=== PATIENT | male | born 1945 | race Caucasian/White ===

== ENCOUNTER 2016-12-05 14:15 | Emergency (ER) | payer MEDICAID ==
[~2016-12-05] VITALS: Ht 172.7 cm; Wt 90.7 kg
[~2016-12-05 14:15] MED LIST: DUTA0.5C PO; HYDR-3326 PO; NEBI5TAB8 PO; TAMS-12 PO; TRAM50TA2 PO; ZOLP5TAB2 PO
[2016-12-05] MEDS ORDERED: ONDANSETRON HCL/PF 4 MG/2 ML VIAL IVP ONE (14:30)
[2016-12-05] MEDS ORDERED: MORPHINE SULFATE INJ 2 MG/ML DISP.SYRIN IV ONE (14:30)
[2016-12-05] MEDS ORDERED: ASPIRIN 81 MG TAB.CHEW PO ONE (14:30)
[2016-12-05] MEDS ORDERED: ASPIRIN 81 MG TAB.CHEW ONE (14:40)
[2016-12-05] MEDS ORDERED: MORPHINE SULFATE INJ 2 MG/ML DISP.SYRIN ONE (14:40)
[2016-12-05] MEDS ORDERED: ONDANSETRON HCL/PF 4 MG/2 ML VIAL ONE (14:40)
[2016-12-05 14:42] LABS: HEMOGLOBIN 16.4 g/dL (13.5-17.5); LYMPHOCYTES # (AUTO) 2.2 /CMM (0.8-4.8)
[2016-12-05 14:46] LABS: BASOPHILS # (AUTO) 0.1 /CMM (0.0-0.2); BASOPHILS % (AUTO) 0.7 % (0.0-2.0); DIFF TOTAL % 100 %; EOSINOPHILS # (AUTO) 0.2 /CMM (0.0-0.7); HEMATOCRIT 48 % (39-51); LYMPHOCYTES % (AUTO) 28.5 % (20.0-44.0); MEAN CORPUSCULAR HEMOGLOBIN 30 PG (26.0-33.0); MEAN CORPUSCULAR HGB CONC 34 g/dl (31.0-36.0); MEAN CORPUSCULAR VOLUME 89 fL (80-96); MONOCYTES # (AUTO) 0.4 /CMM (0.1-1.30); MONOCYTES % (AUTO) 5.5 % (2.0-12.0); NEUTROPHILS % (AUTO) 63.3 % (43.0-81.0); PLATELET COUNT (AUTO) 190 /CMM (150-450); WHITE BLOOD COUNT (AUTO) 7.9 K/uL (4.3-11.0)
[2016-12-05 14:53] LABS: ANION GAP 11 (5-14); CALCIUM, SERUM 8.6 mg/dL (8.5-10.1); CARBON DIOXIDE 28 mmol/L (21-32); CHLORIDE 108 mmol/L (98-107); GLUCOSE 129 mg/dL (74-106); SODIUM SERUM 143 mmol/L (136-145); UREA NITROGEN, BLOOD 19 mg/dL (7-18)
[2016-12-05 14:56] LABS: INR 0.97 (0.87-1.13); PROTHROMBIN TIME 10.2 SECS (9.5-12.7)
[2016-12-05 15:01] LABS: TROPONIN I < 0.017 ng/mL (0.00-0.056)
[2016-12-05 16:53] VITALS: BP 145/83
== END 2016-12-05 16:54 | disposition left against medical advice (07) ==
LOC: ER 14:17
DX: R07.89 Other chest pain (principal); R61 Generalized hyperhidrosis; I10 Essential (primary) hypertension
CPT/HCPCS: 36415; 71010; 80048; 84484; 85025; 85730; 87081; 93005; 96374; 96375; 99285; A4606; J2270; J2405; Z7610

== ENCOUNTER 2017-05-15 14:28 | Emergency (ER) | payer MEDICAID ==
[~2017-05-15] VITALS: Ht 180.3 cm; Wt 70.3 kg
[2017-05-15 14:36] VITALS: BP 139/88
--- NOTE | 2017-05-15 14:36 | NUR ---
HEADACHE X 2 DAYS, WORSENING TODAY AWAITING MD ORDER
--- NOTE | 2017-05-15 15:01 | NUR ---
PT ANDREA ALCARAZ MADE AWARE
== END 2017-05-15 15:05 | disposition left against medical advice (07) ==
LOC: ER 14:29
DX: Z53.21 Procedure and treatment not carried out due to patient leaving prior to being seen by health care provider (principal)
CPT/HCPCS: A4606; Z7610

== ENCOUNTER 2017-12-16 09:22 | Emergency (ER) | payer MEDICAID ==
[~2017-12-16] VITALS: Ht 172.7 cm; Wt 79.4 kg
[~2017-12-16 09:22] MED LIST changes: -HYDR-3326 PO; +HYDR-3974 PO
[2017-12-16 09:26] VITALS: BP 129/79
== END 2017-12-16 10:07 | disposition home or self-care (01) ==
LOC: ER 09:24
DX: H66.91 Otitis media, unspecified, right ear (principal); H60.91 Unspecified otitis externa, right ear; I10 Essential (primary) hypertension; N40.0 Benign prostatic hyperplasia without lower urinary tract symptoms; G43.909 Migraine, unspecified, not intractable, without status migrainosus; Z85.038 Personal history of other malignant neoplasm of large intestine
CPT/HCPCS: A4606; Z7610

== ENCOUNTER 2019-03-29 20:19 | Emergency (ER) | payer MEDICAID ==
[~2019-03-29] VITALS: Ht 165.1 cm; Wt 86.2 kg
--- NOTE | 2019-03-29 20:40 | NUR ---
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 PT AAOX4 NO ACUTE DISTRESS NOTED, RESP EVEN AND UNLABORED. PUPILS PERRLA, PT ABLE TO MOVE ALL EXTREMITIES WELL WITH BILATERAL EQUAL SENIOR WRITER. PLACE PT ON CARDIAC MONITORING, CONTINUOUS POX. PENDING ER MD DELACRUZ.
--- NOTE | 2019-03-29 20:56 | NUR ---
PT TRANSPORTED TO [facility] FOR CT HEAD.
--- NOTE | 2019-03-29 21:19 | NUR ---
PT BACK FROM RADIOLOGY. PENDING CT RESULT.
--- NOTE | 2019-03-29 21:23 | NUR ---
CHAPARRITA SALAZAR AT BEDSIDE TO RE-EVAL PT.
[2019-03-29] MEDS ORDERED: ACETAMINOPHEN ES 500 MG TABLET PO ONE (21:30)
[2019-03-29] MEDS ORDERED: MECLIZINE HCL 12.5 MG TABLET PO ONE (21:30)
[2019-03-29] MEDS ORDERED: ACETAMINOPHEN ES 500 MG TABLET ONE (21:33)
[2019-03-29] MEDS ORDERED: MECLIZINE HCL 12.5 MG TABLET ONE (21:33)
--- NOTE | 2019-03-29 22:25 | NUR ---
Patient discharged to home in stable condition. Written and verbal after care instructions given. Patient verbalizes understanding of instruction. ambulatory with a steady gait noted. pt aaox4 no acute distress noted, resp even and unlabored. pt verbalize relief of dizziness. pt family members at bedside to take pt home.
[2019-03-29 22:26] VITALS: BP 143/76
== END 2019-03-29 22:36 | disposition home or self-care (01) ==
LOC: ER 20:19
DX: G43.909 Migraine, unspecified, not intractable, without status migrainosus (principal); R42 Dizziness and giddiness; I10 Essential (primary) hypertension; N40.0 Benign prostatic hyperplasia without lower urinary tract symptoms; G47.00 Insomnia, unspecified; Z98.890 Other specified postprocedural states; Z85.038 Personal history of other malignant neoplasm of large intestine
CPT/HCPCS: 70450; 99284; J8597

== ENCOUNTER 2019-08-12 08:41 | Emergency (ER) | payer MEDICAID ==
[~2019-08-12] VITALS: Ht 170.2 cm; Wt 86.2 kg
--- NOTE | 2019-08-12 08:55 | NUR ---
PATIENT C/O NECK PAIN, TEACHER COUNSELOR AT BEDSIDE. MD AT BEDSIDE FOR EVAL. PATIENT A/OX4, BREATHING EVEN AND UNLABORED, VITALS STABLE. NEEDS ATTENDED.
[2019-08-12] MEDS ORDERED: IBUPROFEN 600 MG TABLET PO ONE ×2 (09:00→09:05)
--- NOTE | 2019-08-12 09:45 | NUR ---
PATIENTS FAMILY AT BEDSIDE.
[2019-08-12] MEDS ORDERED: ONDANSETRON HCL/PF 4 MG/2 ML VIAL ONE (09:57)
[2019-08-12] MEDS ORDERED: HYDROMORPHONE 1 MG/1 ML DISP.SYRIN ONE (09:57)
[2019-08-12] MEDS ORDERED: HYDROMORPHONE 1 MG/1 ML DISP.SYRIN IV ONE (10:00)
[2019-08-12] MEDS ORDERED: ONDANSETRON HCL/PF - ER 4 MG/2 ML VIAL IV ONE (10:00)
--- NOTE | 2019-08-12 10:26 | NUR ---
Patient A/OX4, no distress noted, per patient, "feels better". Ambulatory with a steady gait. IV removed. Catheter intact and site benign. Pressure and 4x4 applied to site. No bleeding noted.Patient discharged to home in stable condition. Written and verbal after care instructions given to patient and daughter. Patient verbalizes understanding of instruction. Patient instructed not to drive.
[2019-08-12 10:27] VITALS: BP 146/92
== END 2019-08-12 10:28 | disposition home or self-care (01) ==
LOC: ER 08:43
DX: M54.2 Cervicalgia (principal); I10 Essential (primary) hypertension; N40.0 Benign prostatic hyperplasia without lower urinary tract symptoms; G47.00 Insomnia, unspecified; G43.909 Migraine, unspecified, not intractable, without status migrainosus; Z85.038 Personal history of other malignant neoplasm of large intestine; Z98.890 Other specified postprocedural states
CPT/HCPCS: 96374; 96375; 99283; J1170; J2405 ×2

== ENCOUNTER 2019-08-13 01:09 | Emergency (ER) | payer MEDICAID ==
[~2019-08-13] VITALS: Ht 165.1 cm; Wt 88.5 kg
[2019-08-13] MEDS ORDERED: HYDROMORPHONE 1 MG/1 ML DISP.SYRIN ONE (01:54)
[2019-08-13 02:00] VITALS: BP 140/78
[2019-08-13] MEDS ORDERED: HYDROMORPHONE INJ 0.5 MG/0.5 ML SYRINGE IM ONE (02:00)
--- NOTE | 2019-08-13 02:01 | NUR ---
C/O NECK PAIN STARTED YESTERDAY., CAME INTO ER 08/12/19 IN THE AM AND GOT PRESCRIPTION NORCO BUT "DID NOT WORK" VSS, TAKEN TO CT
--- NOTE | 2019-08-13 05:09 | NUR ---
Patient discharged to home in stable condition. Written and verbal after care instructions given. Patient verbalizes understanding of instruction.
== END 2019-08-13 05:10 | disposition home or self-care (01) ==
LOC: ER 01:10
DX: M62.838 Other muscle spasm (principal); I10 Essential (primary) hypertension; N40.0 Benign prostatic hyperplasia without lower urinary tract symptoms; G47.00 Insomnia, unspecified; G43.909 Migraine, unspecified, not intractable, without status migrainosus; Z98.890 Other specified postprocedural states; Z85.038 Personal history of other malignant neoplasm of large intestine; Z79.899 Other long term (current) drug therapy
CPT/HCPCS: 72125; 96372; 99284; J1170

== ENCOUNTER 2019-12-16 08:16 | Emergency (ER) | payer MEDICAID ==
[~2019-12-16] VITALS: Ht 175.3 cm; Wt 74.8 kg
--- NOTE | 2019-12-16 08:30 | NUR ---
R SIDED CHEST PAIN, RADIATING THROUGH TO THE BACK X 4 DAYS. PATIENT A/OX4, BREATHING EVEN AND UNLABORED, NO SOB NOTED, ATTACHED TO THE BREAD PACKER. VSS.
[2019-12-16] MEDS ORDERED: KETOROLAC TROMETHAMINE 15 MG/ML VIAL ONE (08:51)
[2019-12-16 08:52] LABS: BASOPHILS # (AUTO) 0.1 /CMM (0.0-0.2); BASOPHILS % (AUTO) 0.7 % (0.0-2.0); EOSINOPHILS % (AUTO) 2.3 % (0.0-6.0); HEMATOCRIT 49 % (39-51); HEMOGLOBIN 16.6 g/dL (13.5-17.5); LYMPHOCYTES # (AUTO) 2.8 /CMM (0.8-4.8); LYMPHOCYTES % (AUTO) 32.7 % (20.0-44.0); MEAN CORPUSCULAR HGB CONC 34 g/dl (31.0-36.0); MEAN CORPUSCULAR VOLUME 92 fL (80-96); MONOCYTES # (AUTO) 0.7 /CMM (0.1-1.30); MONOCYTES % (AUTO) 8.4 % (2.0-12.0); NEUTROPHILS # (AUTO) 4.8 /CMM (1.8-8.9); NEUTROPHILS % (AUTO) 55.9 % (43.0-81.0); PLATELET COUNT (AUTO) 111 /CMM (150-450); WHITE BLOOD COUNT (AUTO) 8.6 K/uL (4.3-11.0)
[2019-12-16] MEDS ORDERED: KETOROLAC TROMETHAMINE INJ 30 MG/ML VIAL IV ONE (09:00)
[2019-12-16 09:02] LABS: CALCIUM, SERUM 8.3 mg/dL (8.5-10.1); CARBON DIOXIDE 28 mmol/L (21-32); CHLORIDE 108 mmol/L (98-107); CREATININE 0.9 mg/dL (0.6-1.3); GLUCOSE 105 mg/dL (74-106); POTASSIUM 4.3 mmol/L (3.5-5.1); SODIUM SERUM 142 mmol/L (136-145); UREA NITROGEN, BLOOD 12 mg/dL (7-18)
[2019-12-16 09:22] LABS: ALANINE AMINOTRANSFERASE 23 U/L (12-78); ALBUMIN 3.2 g/dL (3.4-5.0); ALKALINE PHOSPHATASE 70 U/L (46-116); ASPARTATE AMINOTRANSFERASE 33 U/L (15-37); B-TYPE NATRIURETIC PEPTIDE 86 PG/ML (0-125); BILIRUBIN,TOTAL 0.6 mg/dL (0.2-1.0); TOTAL PROTEIN, SERUM 6.8 g/dL (6.4-8.2)
--- NOTE | 2019-12-16 09:47 | NUR ---
PATIENT AMBULATORY, DENIES PAIN AT THIS TIME. IV removed. Catheter intact and site benign. Pressure and 4x4 applied to site. No bleeding noted.Patient discharged to home in stable condition. Written and verbal after care instructions given. Patient verbalizes understanding of instruction.
[2019-12-16 09:48] VITALS: BP 131/76
== END 2019-12-16 09:49 | disposition home or self-care (01) ==
LOC: ER 08:18
DX: R07.89 Other chest pain (principal); I10 Essential (primary) hypertension; N40.0 Benign prostatic hyperplasia without lower urinary tract symptoms; G47.00 Insomnia, unspecified; G43.909 Migraine, unspecified, not intractable, without status migrainosus; Z98.890 Other specified postprocedural states; Z79.899 Other long term (current) drug therapy
CPT/HCPCS: 36415; 71045; 80048; 80076; 83880; 84484; 85025; 85730; 87081; 93005 ×3; 96374; 99285; J1885

== ENCOUNTER 2020-05-27 11:15 | Emergency (ER) | payer MEDICAID ==
[~2020-05-27] VITALS: Ht 175.3 cm; Wt 71.7 kg
--- NOTE | 2020-05-27 11:26 | NUR ---
URINE SPECIMEN COLLECTED AND SENT TO LAB.
--- NOTE | 2020-05-27 11:30 | NUR ---
AT BEDSIDE FOR EVAL.
[2020-05-27 11:41] LABS: APPEARANCE,URINE Clear (CLEAR); BILIRUBIN,URINE Negative (NEGATIVE); BLOOD, URINE Negative Ery/uL (NEGATIVE); COLOR,URINE Yellow (YELLOW); KETONES,URINE Trace (NEGATIVE); LEUKOCYTE ESTERASE ,URINE Negative (NEGATIVE); NITRITE, URINE Negative (NEGATIVE); PH,URINE 5.5 (5.0-8.0); PROTEIN,URINE 30 mg/dl (NEGATIVE); UGLUCOSE Negative (NEGATIVE); UROBILINOGEN,URINE 0.2 EU/dL (0.2)
[2020-05-27 11:49] LABS: BASOPHILS % (AUTO) 0.2 % (0.0-2.0); EOSINOPHILS % (AUTO) 0.1 % (0.0-6.0); HEMATOCRIT 49 % (39-51); HEMOGLOBIN 16.4 g/dL (13.5-17.5); LYMPHOCYTES # (AUTO) 1.1 /CMM (0.8-4.8); LYMPHOCYTES % (AUTO) 22.4 % (20.0-44.0); MEAN CORPUSCULAR HGB CONC 34 g/dl (31.0-36.0); MEAN CORPUSCULAR VOLUME 91 fL (80-96); MONOCYTES # (AUTO) 0.5 /CMM (0.1-1.30); MONOCYTES % (AUTO) 9.3 % (2.0-12.0); NEUTROPHILS # (AUTO) 3.3 /CMM (1.8-8.9); PLATELET COUNT (AUTO) 103 /CMM (150-450); RED BLOOD CELL COUNT(AUTO) 5.33 MIL/uL (4.5-6.0); WHITE BLOOD COUNT (AUTO) 4.9 K/uL (4.3-11.0)
[2020-05-27 11:55] LABS: CALCIUM, SERUM 8.6 mg/dL (8.5-10.1); CREATININE 0.8 mg/dL (0.6-1.3); POTASSIUM 3.2 mmol/L (3.5-5.1)
[2020-05-27 12:16] LABS: BACTERIA,URINE Few /HPF (None Seen); CALCIUM OXALATE CRYSTALS,UR Few /HPF (None Seen); MUCUS,URINE Moderate /LPF (None Seen); RBC,URINE 0-2 /HPF (0-2); SQUAMOUS EPITHELIAL CELL,UR Few /HPF (None Seen); WBC,URINE 0-2 /HPF (0-3)
[2020-05-27 12:45] VITALS: BP 138/81
--- NOTE | 2020-05-27 12:45 | NUR ---
Patient discharged to home in stable condition. Written and verbal after care instructions given. Patient verbalizes understanding of instruction.
== END 2020-05-27 12:45 | disposition home or self-care (01) ==
LOC: ER 11:19
DX: R33.9 Retention of urine, unspecified (principal); I10 Essential (primary) hypertension; N40.0 Benign prostatic hyperplasia without lower urinary tract symptoms; G47.00 Insomnia, unspecified; G43.909 Migraine, unspecified, not intractable, without status migrainosus; Z98.890 Other specified postprocedural states; Z79.899 Other long term (current) drug therapy
CPT/HCPCS: 36415; 80048-TC; 81000-TC; 85025-TC; 87086-TC

== ENCOUNTER 2021-03-12 12:44 | Emergency (ER) | payer MEDICAID, OTHER ==
[~2021-03-12] VITALS: Ht 165.1 cm; Wt 86.2 kg
[2021-03-12 12:53] VITALS: BP 146/82
[2021-03-12] MEDS ORDERED: TAMS-12 PO (12:57)
[2021-03-12] MEDS ORDERED: DUTA0.5C37 PO (12:57)
[2021-03-12] MEDS ORDERED: ALPR1TAB7 MT (12:57)
[2021-03-12] MEDS ORDERED: CETI10TA14 PO (12:57)
[2021-03-12] MEDS ORDERED: CARB200T8 PO (12:57)
[2021-03-12] MEDS ORDERED: GABA300C PO (12:57)
[2021-03-12] MEDS ORDERED: ASPI-1420 PO (12:57)
[2021-03-12] MEDS ORDERED: OMEP40CA13 PO (12:57)
[2021-03-12] MEDS ORDERED: ENAL10TA39 PO (12:57)
[2021-03-12] MEDS ORDERED: TOPI50TA24 PO (12:57)
--- NOTE | 2021-03-12 13:02 | NUR ---
THE PATIENT BIBS FOR C/O R SIDE CHEST AND UPPER BACK PAIN W/ NOTED RASH. DENIES N/V OR PAIN AT THIS TIME. WILL CONTINUE TO MONITOR THE PATIENT.
[2021-03-12] MEDS ORDERED: VALA100026 PO (13:19)
--- NOTE | 2021-03-12 13:21 | NUR ---
The patient alert and oriented x4. Patient discharged to home in stable condition. Written and verbal after care instructions given. Patient verbalizes understanding of instruction.
== END 2021-03-12 13:22 | disposition home or self-care (01) ==
LOC: ER 12:48
DX: B02.9 Zoster without complications (principal); I10 Essential (primary) hypertension; G43.909 Migraine, unspecified, not intractable, without status migrainosus; G47.00 Insomnia, unspecified; Z79.899 Other long term (current) drug therapy; Z85.038 Personal history of other malignant neoplasm of large intestine; Z98.890 Other specified postprocedural states; Z79.82 Long term (current) use of aspirin

== ENCOUNTER 2021-03-15 03:59 | Emergency (ER) | payer OTHER ==
[~2021-03-15] VITALS: Ht 165.1 cm; Wt 86.2 kg
[~2021-03-15 03:59] MED LIST changes: +ALPR1TAB7 MT; +ASPI-1420 PO; +CARB200T8 PO; +CETI10TA14 PO; -DUTA0.5C PO; +DUTA0.5C37 PO; +ENAL10TA39 PO; +GABA300C PO; -NEBI5TAB8 PO; +OMEP40CA13 PO; +TOPI50TA24 PO; -TRAM50TA2 PO; +VALA100026 PO; -ZOLP5TAB2 PO
[2021-03-15 04:10] VITALS: BP 125/79
[2021-03-15] MEDS ORDERED: MORPHINE SULFATE INJ 4 MG/ML DISP.SYRIN ONE (04:21)
[2021-03-15] MEDS: MORPHINE SULFATE INJ 2 MG/ML DISP.SYRIN IM ONE (04:32)
--- NOTE | 2021-03-15 04:45 | NUR ---
Patient discharged to home in stable condition. Written and verbal after care instructions given. Patient verbalizes understanding of instruction.
--- NOTE | 2021-03-15 05:01 | NUR ---
PATIENT IS PICKED UP BY .
== END 2021-03-15 05:03 | disposition home or self-care (01) ==
LOC: ER 04:07
DX: B02.9 Zoster without complications (principal); I10 Essential (primary) hypertension; N40.0 Benign prostatic hyperplasia without lower urinary tract symptoms; G43.909 Migraine, unspecified, not intractable, without status migrainosus; G47.00 Insomnia, unspecified; Z98.890 Other specified postprocedural states; Z79.899 Other long term (current) drug therapy
CPT/HCPCS: 96372; 99283; J2270

== ENCOUNTER 2022-06-21 20:45 | Emergency (ER) | payer OTHER ==
[~2022-06-21] VITALS: Ht 165.1 cm; Wt 70.3 kg
[~2022-06-21 20:45] MED LIST changes: -OMEP40CA13 PO; +OMEP40CA21 PO
--- NOTE | 2022-06-21 20:56 | NUR ---
DR. JOHNY SALAZAR AT PT'S BEDSIDE
--- NOTE | 2022-06-21 20:56 | NUR ---
BIBFAMILY C/O CP, H/A AND SOB FOR THE PAST 3-4 DAYS. PT A/OX4. TOLERATING R/A WITH SOB. CONNECTED PT TO POX AND MONITOR. SAFETY MEASURES IN PLACE.
--- NOTE | 2022-06-21 21:03 | NUR ---
JOSEFINA KUHN AT BEDSIDE FOR A PHENOMENAL EKG
--- NOTE | 2022-06-21 21:04 | NUR ---
JOSEFINA STONE AT BEDSIDE ASSISTING IN THE REMARKABLE EKG OF JOSEFINA KUHN
--- NOTE | 2022-06-21 21:05 | NUR ---
EMT AT BEDSIDE FOR EKG WELL
--- NOTE | 2022-06-21 21:06 | NUR ---
JOSEFINA CARRIZALES COLLECTED BLOOD AND SENT IT OFF TO THE LABORATORY
--- NOTE | 2022-06-21 21:06 | NUR ---
JOSEFINA CARRIZALES ESTABLISHED IV LINE INFUSING WELL AT [id number]
[2022-06-21] MEDS ORDERED: MORPHINE SULFATE INJ 4 MG/ML DISP.SYRIN ONE (21:09)
--- NOTE | 2022-06-21 21:09 | NUR ---
JI ESTHER PHONE [phone]
--- NOTE | 2022-06-21 21:15 | NUR ---
CAROLYN RT AT PT'S BEDSIDE FOR XRAY
[2022-06-21] MEDS ORDERED: MORPHINE SULFATE INJ 2 MG/ML DISP.SYRIN IV ONE (21:30)
[2022-06-21 21:46] LABS: BASOPHILS % (AUTO) 0.4 % (0.0-2.0); EOSINOPHILS % (AUTO) 1.2 % (0.0-6.0); HEMATOCRIT 47 % (39-51); HEMOGLOBIN 15.6 g/dL (13.5-17.5); LYMPHOCYTES # (AUTO) 2.3 K/uL (0.8-4.8); LYMPHOCYTES % (AUTO) 23.8 % (20.0-44.0); MEAN CORPUSCULAR HGB CONC 33 g/dl (31.0-36.0); MEAN CORPUSCULAR VOLUME 92 fL (80-96); MONOCYTES # (AUTO) 0.7 K/uL (0.1-1.30); MONOCYTES % (AUTO) 7.3 % (2.0-12.0); NEUTROPHILS # (AUTO) 6.6 K/uL (1.8-8.9); NEUTROPHILS % (AUTO) 67.3 % (43.0-81.0); PLATELET COUNT (AUTO) 176 K/uL (150-450); RED BLOOD CELL COUNT(AUTO) 5.11 MIL/uL (4.5-6.0); WHITE BLOOD COUNT (AUTO) 9.8 K/uL (4.3-11.0)
[2022-06-21 21:55] LABS: CALCIUM, SERUM 7.9 mg/dL (8.5-10.1); CARBON DIOXIDE 26 mmol/L (21-32); CHLORIDE 107 mmol/L (98-107); CREATININE 0.9 mg/dL (0.6-1.3); GLUCOSE 125 mg/dL (74-106); POTASSIUM 3.8 mmol/L (3.5-5.1); SODIUM SERUM 143 mmol/L (136-145); UREA NITROGEN, BLOOD 18 mg/dL (7-18)
[2022-06-21 22:01] LABS: ALANINE AMINOTRANSFERASE 29 U/L (12-78); ALBUMIN 3.5 g/dL (3.4-5.0); ALKALINE PHOSPHATASE 72 U/L (46-116); ASPARTATE AMINOTRANSFERASE 13 U/L (15-37); BILIRUBIN,DIRECT 0.1 mg/dL (0.0-0.2); BILIRUBIN,TOTAL 0.3 mg/dL (0.2-1.0); TOTAL PROTEIN, SERUM 6.8 g/dL (6.4-8.2)
--- NOTE | 2022-06-21 22:11 | NUR ---
US TECH AT PT'S BEDSIDE
--- NOTE | 2022-06-22 00:17 | NUR ---
Patient discharged to home in stable condition. Written and verbal after care instructions given. Patient verbalizes understanding of instruction. IV removed. Catheter intact and site benign. Pressure and 4x4 applied to site. No bleeding noted. PT ambulatory with a steady gait
[2022-06-22 00:21] VITALS: BP 142/87
== END 2022-06-22 00:23 | disposition home or self-care (01) ==
LOC: ER 20:47
DX: R07.89 Other chest pain (principal); I10 Essential (primary) hypertension; N40.0 Benign prostatic hyperplasia without lower urinary tract symptoms; G47.00 Insomnia, unspecified; G43.909 Migraine, unspecified, not intractable, without status migrainosus; Z98.890 Other specified postprocedural states; Z79.899 Other long term (current) drug therapy; Z79.82 Long term (current) use of aspirin
CPT/HCPCS: 99285; 96374; 76705; 71045; 93005; 85025; 80048; 83690; 80076; 36415; 84484; J2270